=== PATIENT | female | born 1975 | race Caucasian/White ===

== ENCOUNTER → 2017-07-17 | Outpatient (CLI) | payer MEDICAID ==
[~2017-07-17] MED LIST: CIPR500T4 PO
== END ==
LOC: HPND 07:55
PROVIDERS: ATTEND Obstetrics & Gynecology
DX: O09.522 Supervision of elderly multigravida, second trimester (principal); O35.2XX0 Maternal care for (suspected) hereditary disease in fetus, not applicable or unspecified; Z82.49 Family history of ischemic heart disease and other diseases of the circulatory system; Z3A.00 Weeks of gestation of pregnancy not specified
CPT/HCPCS: 76811; 76817

== ENCOUNTER → 2017-07-31 | Outpatient (CLI) | payer MEDICAID | LOC: HPND 07:47 | PROVIDERS: ATTEND Obstetrics & Gynecology | DX: O09.522 Supervision of elderly multigravida, second trimester (principal); O35.2XX0 Maternal care for (suspected) hereditary disease in fetus, not applicable or unspecified | CPT/HCPCS: 76815; 76817 ==

== ENCOUNTER → 2017-08-21 | Outpatient (CLI) | payer MEDICAID | LOC: HPND 08:42 | PROVIDERS: ATTEND Obstetrics & Gynecology | DX: O09.522 Supervision of elderly multigravida, second trimester (principal); O35.2XX0 Maternal care for (suspected) hereditary disease in fetus, not applicable or unspecified; O09.292 Supervision of pregnancy with other poor reproductive or obstetric history, second trimester | CPT/HCPCS: 76816; 76825; 76827; 93325 ==

== ENCOUNTER 2017-12-05 08:03 | Inpatient (IN) ==
[2017-12-05] MEDS ORDERED: Oxytocin 30 Units/500ml Premix 30 UNITS/500 ML BAG IV.SIG ONE (08:30)
[2017-12-05] MEDS ORDERED: Sod Chloride 0.9% Inj 1,000 ML IV.CONT PRN (08:30)
[2017-12-05] MEDS ORDERED: Citric Acid/Sodium Citrate Liq 30 ML UDC PO SCH (08:30)
[2017-12-05] MEDS ORDERED: Sodium Chlor 0.9% Inj 500 ML IV.SIG PRN (08:30)
[2017-12-05] MEDS ORDERED: fentaNYL Citrate Inj 100 MCG/2 ML Ampul IV.PUSH PRN ×2 (08:30)
[2017-12-05] MEDS ORDERED: Naloxone Inj 0.4 MG/ML Vial IV.PUSH PRN ×2 (08:30→16:28)
[2017-12-05] MEDS ORDERED: Oxytocin 30 Units/500ml Premix 30 UNITS/500 ML BAG IV.CONT PRN ×2 (08:33→16:28)
[2017-12-05] MEDS ORDERED: Sodium Chloride 0.9% 2 ML Flush PRN IV.FLUSH (08:45)
--- NOTE | 2017-12-05 08:46 | P.HPOB ---
History of Present Illness Primary Care Physician: Sami Sim M.D. Chief Complaint: I broke my water in the parking lot History of Present Illness: 42-year-old at 38+ weeks presents complaining of rupture of membranes in the parking lot at 8 AM today. care with Dr. Chiquis Atkinson gestational diabetes well controlled/AMA/previous delivery for twins. Desires . Elects for tubal if necessitate delivery. Otherwise uncomplicated to date. GBS negative. Weeks Gestation:: 38 Para: 2 : 3 - Inpatient Certification I certify that the inpatient services were ordered in accordance with Medicare regulations governing the order. This includes certification that hospital inpatient services are reasonable and necessary and in the case of services not specified as inpatient-only under 42 CFR 419.22(n), that they are appropriately provided as inpatient services in accordance to with the 2-midnight benchmark under 43 CFR 412.3(e) Estimated Total Length of Stay (Days): 3 Plans for Post Hospital Care: Home [facility] - Medical History Medical History: Medical History (Last Updated 12/05/17 @ 08:42 by Jocelin Ferrari MD) History of delivery, currently Medications and Allergies Allergies Allergy/AdvReac Type Severity Reaction Status Date / Time No Known Allergies Allergy Uncoded 05/28/13 06:21 Exam - Constitutional no acute distress - Routine HEENT Exam Head: Present: normocephalic Eye: Present: PERRL ENT: Present: mucous membranes moist - Routine Neck Exam Present: supple - Routine Chest/Breast/Axilla Exam Chest wall: Absent: tenderness Breast: Absent: tenderness Axillae: Absent: lymphadenopathy - Routine Respiratory Exam Present: CTA bilaterally - Routine Cardiovascular Exam Present: RRR - Routine Abdominal Exam Present: soft - Routine Exam Comments: Fundal height consistent with gestational age. Longitudinal lie. Pelvic exam adequate pelvis. VE: 2 cm 70% effaced -1 station fore bag intact. Gross ruptured clear fluid. heart rate baseline 150. Moderate variability. - Routine Skin Exam Present: intact - Routine Neurological Exam Present: alert, oriented X3 Caprini VTE Risk Assessment Caprini VTE Risk Assessment: No/Low Risk (score <= 1) Caprini Risk Assessment Model: Point Value = 1 Point Value = 2 Point Value = 3 Point Value = 5 Age 41-60 Minor surgery BMI > 25 kg/m2 Swollen legs Varicose veins or History of unexplained or recurrent spontaneous Oral contraceptives or hormone replacement Sepsis (< 1 month) Serious lung disease, including pneumonia (< 1 month) Abnormal pulmonary function Acute myocardial infarction Congestive heart failure (< 1 month) History of inflammatory bowel disease Medical patient at bed rest Age 61-74 Arthroscopic surgery Major open surgery (> 45 min) Laparoscopic surgery (> 45 min) Malignancy Confined to bed (> 72 hours) Immobilizing plaster cast Central venous access Age >= 75 History of VTE Family history of VTE Factor V Leiden Prothrombin [id number] Lupus anticoagulant Anticardiolipin antibodies Elevated serum homocysteine Heparin-induced thrombocytopenia Other congenital or acquired thrombophilia Stroke (< 1 month) Elective arthroplasty Hip, pelvis, or leg fracture Acute spinal cord injury (< 1 month) Prophylaxis Regimen: Total Risk Factor Score Risk Level Prophylaxis Regimen 0-1 Low Early ambulation 2 Moderate Order ONE of the following: *Sequential Compression Device (SCD) *Heparin 5000 units SQ BID 3-4 Higher Order ONE of the following medications: *Heparin 5000 units SQ TID *Enoxaparin/Lovenox 40 mg SQ daily (WT < 150 kg, CrCl > 30 mL/min) *Enoxaparin/Lovenox 30 mg SQ daily (WT < 150 kg, CrCl > 10-29 mL/min) *Enoxaparin/Lovenox 30 mg SQ BID (WT < 150 kg, CrCl > 30 mL/min) AND/OR *Sequential Compression Device (SCD) 5 or more Highest Order ONE of the following medications: *Heparin 5000 units SQ TID (Preferred with Epidurals) *Enoxaparin/Lovenox 40 mg SQ daily (WT < 150 kg, CrCl > 30 mL/min) *Enoxaparin/Lovenox 30 mg SQ daily (WT < 150 kg, CrCl > 10-29 mL/min) *Enoxaparin/Lovenox 30 mg SQ BID (WT < 150 kg, CrCl > 30 mL/min) AND *Sequential Compression Device (SCD) Assessment and Plan - Diagnosis (1) Patient desires vaginal after section () Code(s): O34.219 - Maternal care for unspecified type scar from previous delivery Status: Acute (2) Advanced maternal age in multigravida Code(s): O09.529 - Supervision of elderly multigravida, unspecified trimester Status: Acute (3) Gestational diabetes, diet controlled Code(s): O24.410 - Gestational diabetes mellitus in , diet controlled Status: Acute (4) 38 weeks gestation of Code(s): Z3A.38 - 38 weeks gestation of Status: Acute - Plan Discussed with Dr. Sim. Plan direct admission. Patient is aware of alternatives benefits complications regarding . Plan oxytocin 30. Accu -Cheks every hour once in labor.
[2017-12-05] MEDS ORDERED: Sodium Chloride 0.9% 2 ML Flush BID IV.FLUSH SCH (09:00)
[2017-12-05 09:58] LABS: Baso % (Auto) 0.2 % (0.0-2.0); Eos # (Auto) 0.1 th/mm3 (0.0-0.4); Eos % (Auto) 0.9 % (0.0-4.0); Lymph # (Auto) 1.5 th/mm3 (1.0-4.8); Lymph % (Auto) 19.3 % (9.0-44.0); Mean Corpuscular HGB Conc 34.3 % (32.0-36.0); Mean Corpuscular Hemoglobin 30.4 pg (27.0-34.0); Mean Corpuscular Volume 88.7 fL (80.0-100.0); Mean Platelet Volume 9.3 fL (7.0-11.0); Mono # (Auto) 0.5 th/mm3 (0.0-0.9); Mono % (Auto) 6.3 % (0.0-8.0); Neut # (Auto) 5.9 th/mm3 (1.8-7.7); Neut % (Auto) 73.3 % (16.0-70.0); Platelet Count 139 th/mm3 (150-450); Red Blood Count 3.95 mil/mm3 (4.00-5.30); Red Cell Distribution Width 15.4 % (11.6-17.2)
[2017-12-05 10:10] LABS: Albumin 2.5 g/dL (3.4-5.0); Anion Gap 9 meq/L (5-15); Aspartate Aminotransferase 12 U/L (15-37); Blood Urea Nitrogen 11 mg/dL (7-18); Calcium 8.8 mg/dL (8.5-10.1); Chloride 109 meq/L (98-107); Glomerular Filtration Rate Greater Than 89 mL/min (>89); Potassium 3.9 meq/L (3.5-5.1); Sodium 139 meq/L (136-145)
[2017-12-05 10:11] LABS: Alanine Aminotransferase 18 U/L (10-53)
[2017-12-05 10:13] LABS: Alkaline Phosphatase 149 U/L (45-117); Total Protein 6.4 g/dL (6.4-8.2)
[2017-12-05 10:14] LABS: Amorphous Sediment,Urine Moderate /hpf; Bacteria,Urine Few /hpf; Bilirubin,Urine Negative (Negative); Clarity,Urine Cloudy (Clear); Color,Urine Yellow (Yellw/Straw); Glucose,Urine (UA) 50 mg/dL (Negative); Leukocyte Esterase,Urine Trace (Negative); Nitrite,Urine Negative (Negative); Specific Gravity,Urine 1.006 (1.002-1.035); Squamous Epithelial Cell,Urine 19 /hpf (0-5)
[2017-12-05 10:24] LABS: Amphetamine Urine With Conf Neg (Neg); Benzodiazepine Urine With Conf Neg (Neg)
[2017-12-05] MEDS ORDERED: fentaNYL 2MCG-Bupiv 0.125% Epi 150 ML EPIDURAL ONE (13:50)
[2017-12-05] MEDS ORDERED: Lidocaaine 1.5%/Epinephrine 1:200,000 PF Inj 5 ML Amp ONE (13:55)
[2017-12-05] MEDS ORDERED: Lidocaine PF 1% Inj 5 ML Vial ONE (13:57)
[2017-12-05] MEDS ORDERED: Varicella Vaccine Live 1350 UNITS/0.5 ML Vial SQ ONE (16:00)
[2017-12-05] MEDS ORDERED: Diphtheria/Tetanus/Pertussis Vaccine Inj 0.5 ML Syringe IM ONE (16:00)
[2017-12-05] MEDS ORDERED: Measles/Mumps/Rubella Vaccine Inj 0.5 ML Vial SQ ONE (16:00)
[2017-12-05] MEDS ORDERED: Witch Hazel 50%/Glyderin 12.5% 40 Pad Jar RECTAL PRN (16:28)
[2017-12-05] MEDS ORDERED: Zolpidem Tartrate 5 MG Tablet PO PRN (16:28)
[2017-12-05] MEDS ORDERED: Bisacodyl 10 MG Supp RECTAL PRN (16:28)
[2017-12-05] MEDS ORDERED: Benzocaine 20% Top Spray 60 ML Can TOPICAL PRN (16:28)
--- NOTE | 2017-12-05 16:34 | P.OBDELI ---
Weeks Gestation: 38 Patient Started Active Labor: Yes Active Labor Start Date: 12/05/17 Medical Induction of Labor: No Artificial Rupture of Membrane: No Anesthesia: Epidural Episiotomy: none Vaginal Delivery: Normal Presentation: Occiput anterior Nuchal Cord: x1 Delayed Cord Clamping (45 sec): Yes Placenta: Spontaneous delivery, Intact, Uterus explored +, 3 vessel cord Laceration: Perineal, 2 deg Repair: Vicryl running Infant: Male Male A Weight: 3.77 kg score (1 min): 8 score (5 min): 9 Additional Information: Alejandra delivery of Jones. Tight nucal cord reduced on perineum Small 2nd degree tear repaired with 3-0 vicryl EBL was 300cc
[2017-12-05] MEDS ORDERED: fentaNYL Citrate Inj 100 MCG/2 ML Ampul EPIDURAL ONE (17:18)
[2017-12-05] MEDS ORDERED: fentaNYL 2MCG-Bupiv 0.125% Epi 150 ML EPIDURAL PRN (17:18)
[2017-12-05] MEDS: Senna/Docusate Sodium 8.6/50 MG Tablet PO SCH (20:10)
[2017-12-06] MEDS: Acetaminophen 325 MG Tablet PO PRN ×2 (05:44→16:56)
[2017-12-06 06:14] LABS: Anion Gap 9 meq/L (5-15); Blood Urea Nitrogen 9 mg/dL (7-18); Calcium 8.2 mg/dL (8.5-10.1); Carbon Dioxide 21.6 meq/L (21.0-32.0); Chloride 111 meq/L (98-107); Glomerular Filtration Rate Greater Than 89 mL/min (>89); Glucose,Random 99 mg/dL (74-106); Potassium 3.7 meq/L (3.5-5.1); Sodium 142 meq/L (136-145)
--- NOTE | 2017-12-06 07:12 | P.PNOB ---
Subjective Post day: 1 Interval history: Doing well Pain is controlled baby is doing well. Bleeding is normal Objective Vital Signs/I&O: Vital Signs 12/05/17 08:38 12/05/17 08:39 12/05/17 09:55 Temperature 98.7 F Pulse Rate 104 H 97 H Respiratory Rate 20 20 Blood Pressure 126/80 130/73 12/05/17 10:30 12/05/17 11:01 12/05/17 11:44 Temperature 99.2 F Pulse Rate 93 H 88 Respiratory Rate 20 20 20 Blood Pressure 123/72 120/68 12/05/17 11:45 12/05/17 12:51 12/05/17 13:26 Temperature 99.1 F Pulse Rate 88 91 H Respiratory Rate 20 Blood Pressure 126/68 137/71 12/05/17 14:10 12/05/17 14:36 12/05/17 14:50 Temperature 99.0 F Pulse Rate 92 H 108 H 97 H Respiratory Rate Blood Pressure 130/87 146/81 H 81/55 L 12/05/17 14:55 12/05/17 15:00 12/05/17 15:05 Temperature Pulse Rate 109 H 111 H 103 H Respiratory Rate 20 Blood Pressure 116/62 97/56 L 103/38 L 12/05/17 15:12 12/05/17 15:20 12/05/17 16:17 Temperature Pulse Rate 122 H 121 H 156 H Respiratory Rate 20 Blood Pressure 71/47 L 116/58 L 101/38 L 12/05/17 16:23 12/05/17 16:31 12/05/17 16:45 Temperature Pulse Rate 112 H 105 H 100 H Respiratory Rate Blood Pressure 140/60 124/64 133/64 12/05/17 16:50 12/05/17 17:05 12/05/17 17:20 Temperature 99.6 F Pulse Rate 106 H 103 H Respiratory Rate 18 18 Blood Pressure 133/62 129/71 12/05/17 17:32 12/05/17 18:33 Temperature 98.5 F Pulse Rate 109 H 100 H Respiratory Rate 18 18 Blood Pressure 121/65 135/70 Intake & Output 12/05/17 12/06/17 12/06/17 18:59 06:59 18:59 Intake Total 1000 / 1000 Balance 1000 / 1000 Weight 101.605 kg Intake: IV 1000 / 1000 LR 1000 mL Inj 1,000 ML @ 125 1000 / 1000 mls/hr IV.CONT .Q8H [facility] Rx#: [id number] Result Diagrams: 12/05/17 09:00 12/06/17 05:25 Objective Remarks: GENERAL: Well-nourished, well-developed patient. CARDIOVASCULAR: Regular rate and rhythm without murmurs, gallops, or rubs. RESPIRATORY: Breath sounds equal bilaterally. No accessory muscle use. ABDOMEN/GI: Abdomen soft, non-tender. Fundus: Firm, non-tender at umbilicus. GENITOURINARY: Light to moderate bleeding. EXTREMITIES: No cyanosis or edema, non-tender, without signs of DVT. Medications and IVs: Active Medications Acetaminophen (Tylenol) 650 mg PO Q4H PRN PRN Reason: PAIN SCALE 1 TO 2 Last Admin: 12/06/17 05:44 Dose: 650 mg Al Hydroxide/Mg Hydroxide (Milk Of Magnesia Liq) 30 ml PO Q12H PRN PRN Reason: Mild Constipation Benzocaine (Americaine 20% [place]) 1 spray TOPICAL Q4H PRN PRN Reason: For Perineum Discomfort Bisacodyl (Dulcolax Supp) 10 mg RECTAL DAILY PRN PRN Reason: SEVERE CONSITIPATION Ephedrine Sulfate (Ephedrine/Ns Syringe) 10 mg IV.PUSH UNSCH PRN PRN Reason: SEE LABEL COMMENTS Stop: 12/06/17 17:18 Oxytocin (Pitocin 30 Units/Ns 500 Ml Premix) 30 units in 500 mls @ 1 mls/hr IV.CONT TITRATE PRN; Protocol PRN Reason: For induction of labor Last Admin: 12/05/17 09:14 Dose: 1 milliunit/min, 1 mls/hr Oxytocin (Pitocin 30 Units/Ns 500 Ml Premix) 30 units in 500 mls @ 100 mls/hr IV.CONT UNSCH PRN PRN Reason: Heavy bleeding Fentanyl/Bupivacaine/Sodium Chlor (Fentanyl 2 Mcg-Bupiv 0.125% Epi) 150 mls @ 12 mls/hr EPIDURAL PRN PRN PRN Reason: for Labor Pain Ibuprofen (Motrin) 800 mg PO Q8H PRN PRN Reason: For Cramping Last Admin: 12/06/17 05:44 Dose: 800 mg Lactulose (Lactulose Liq) 30 ml PO DAILY PRN PRN Reason: SEVERE CONSITIPATION Miscellaneous Information (Misc Information) 1 each OTHER UNSCH PRN PRN Reason: SEE LABEL COMMENTS Stop: 12/06/17 17:18 Miscellaneous Information (Misc Information) 1 each OTHER UNSCH PRN PRN Reason: SEE LABEL COMMENTS Stop: 12/06/17 17:18 Naloxone HCl (Narcan Inj) 0.1 mg IV.PUSH Q2M PRN PRN Reason: for opiate reversal Ondansetron HCl (Zofran Odt) 4 mg PO Q6H PRN PRN Reason: NAUSEA OR VOMITING Vit/Calcium/Iron/Folic Ac (Stuartnatal Plus 3) 1 tab PO DAILY MARIELENA Senna/Docusate Sodium (Lima-Colace) 1 tab PO BID [facility] Last Admin: 12/05/17 20:10 Dose: 1 tab Sennosides (Senokot) 17.2 mg PO Q12H PRN PRN Reason: Moderate Constipation Sodium Chloride (Ns Flush) 2 ml IV.FLUSH BID MARIELENA Sodium Chloride (Ns Flush) 2 ml IV.FLUSH PRN PRN PRN Reason: FLUSH AFTER USING IV ACCESS [place]/Glycerin (Tucks Pads) 1 applicatio RECTAL QID PRN PRN Reason: HEMORRHOIDS Zolpidem Tartrate (Ambien) 5 mg PO HS PRN PRN Reason: SLEEP Assessment and Plan - Plan PPD #1 Doing well GDM random blood sugar this am was 99. Will have her check her sugars at home and check her in one week.
[2017-12-06 08:02] VITALS: TEMP 98
[2017-12-06] MEDS: Prenatal Vit/Ca/Iron/Folic Acid Tablet PO SCH (08:34)
[2017-12-06] MEDS: Senna/Docusate Sodium 8.6/50 MG Tablet PO SCH (08:34)
[2017-12-07] MEDS: Acetaminophen 325 MG Tablet PO PRN ×2 (06:13→11:41)
--- NOTE | 2017-12-07 07:20 | P.PNOB ---
Subjective Post day: 2 Interval history: pt doing well, ready for d/c Objective Vital Signs/I&O: Vital Signs 12/06/17 08:00 12/06/17 20:00 Temperature 98.0 F 98.0 F Pulse Rate 94 H 67 Respiratory Rate 20 18 Blood Pressure 120/69 125/69 Result Diagrams: 12/05/17 09:00 12/06/17 05:25 Objective Remarks: GENERAL: Well-nourished, well-developed patient. CARDIOVASCULAR: Regular rate and rhythm without murmurs, gallops, or rubs. RESPIRATORY: Breath sounds equal bilaterally. No accessory muscle use. ABDOMEN/GI: Abdomen soft, non-tender. Fundus: Firm, non-tender at umbilicus. GENITOURINARY: Light to moderate bleeding. EXTREMITIES: No cyanosis or edema, non-tender, without signs of DVT. Medications and IVs: Active Medications Acetaminophen (Tylenol) 650 mg PO Q4H PRN PRN Reason: PAIN SCALE 1 TO 2 Last Admin: 12/07/17 06:13 Dose: 650 mg Al Hydroxide/Mg Hydroxide (Milk Of Magnesia Liq) 30 ml PO Q12H PRN PRN Reason: Mild Constipation Benzocaine (Americaine 20% [place]) 1 spray TOPICAL Q4H PRN PRN Reason: For Perineum Discomfort Bisacodyl (Dulcolax Supp) 10 mg RECTAL DAILY PRN PRN Reason: SEVERE CONSITIPATION Oxytocin (Pitocin 30 Units/Ns 500 Ml Premix) 30 units in 500 mls @ 1 mls/hr IV.CONT TITRATE PRN; Protocol PRN Reason: For induction of labor Last Admin: 12/05/17 09:14 Dose: 1 milliunit/min, 1 mls/hr Oxytocin (Pitocin 30 Units/Ns 500 Ml Premix) 30 units in 500 mls @ 100 mls/hr IV.CONT UNSCH PRN PRN Reason: Heavy bleeding Fentanyl/Bupivacaine/Sodium Chlor (Fentanyl 2 Mcg-Bupiv 0.125% Epi) 150 mls @ 12 mls/hr EPIDURAL PRN PRN PRN Reason: for Labor Pain Ibuprofen (Motrin) 800 mg PO Q8H PRN PRN Reason: For Cramping Last Admin: 12/07/17 06:15 Dose: 800 mg Lactulose (Lactulose Liq) 30 ml PO DAILY PRN PRN Reason: SEVERE CONSITIPATION Naloxone HCl (Narcan Inj) 0.1 mg IV.PUSH Q2M PRN PRN Reason: for opiate reversal Ondansetron HCl (Zofran Odt) 4 mg PO Q6H PRN PRN Reason: NAUSEA OR VOMITING Vit/Calcium/Iron/Folic Ac (Stuartnatal Plus 3) 1 tab PO DAILY [facility] Last Admin: 12/06/17 08:34 Dose: 1 tab Senna/Docusate Sodium (Lima-Colace) 1 tab PO BID MARIELENA Last Admin: 12/06/17 08:34 Dose: 1 tab Sennosides (Senokot) 17.2 mg PO Q12H PRN PRN Reason: Moderate Constipation Sodium Chloride (Ns Flush) 2 ml IV.FLUSH BID MARIELENA Sodium Chloride (Ns Flush) 2 ml IV.FLUSH PRN PRN PRN Reason: FLUSH AFTER USING IV ACCESS [place]/Glycerin (Tucks Pads) 1 applicatio RECTAL QID PRN PRN Reason: HEMORRHOIDS Zolpidem Tartrate (Ambien) 5 mg PO HS PRN PRN Reason: SLEEP Assessment and Plan - Diagnosis (1) Patient desires vaginal after section () Code(s): O34.219 - Maternal care for unspecified type scar from previous delivery Status: Acute (2) Advanced maternal age in multigravida Code(s): O09.529 - Supervision of elderly multigravida, unspecified trimester Status: Acute (3) Gestational diabetes, diet controlled Code(s): O24.410 - Gestational diabetes mellitus in , diet controlled Status: Acute - Plan PPD #2 Doing well GDM not restarted on insulin by primary provider Dr Sim. He has discussed plan with patient of her checking her sugars at home over one week then f/u in office to reassess need for further insulin.
[2017-12-07 08:20] VITALS: BP 124/73; PULSE 93; RESP 20
[2017-12-07] MEDS: Senna/Docusate Sodium 8.6/50 MG Tablet PO SCH (09:43)
[2017-12-07] MEDS: Prenatal Vit/Ca/Iron/Folic Acid Tablet PO SCH (09:43)
== END 2017-12-07 11:48 | disposition home or self-care (01) ==
LOC: HOBED 08:03 → H2E 08:31 → H1EA 18:12
PROVIDERS: ADMIT Obstetrics & Gynecology; ATTEND Obstetrics & Gynecology